=== PATIENT | female | born 1980 | race Caucasian/White ===

== ENCOUNTER 2017-07-04 18:08 | Emergency (ER) | payer OTHER ==
[~2017-07-04] VITALS: Ht 172.7 cm; Wt 65.8 kg
[~2017-07-04 18:08] MED LIST: AMOXICILLIN 50500 MG PO; LIDOCAINE VISC100 M1 MM; NORCO 5-325 TA1 EACH PO
[2017-07-04 18:21] VITALS: BP 121/80
[2017-07-04] MEDS ORDERED: LORATIDINE 10 M10 M1 PO (18:29)
[2017-07-04] MEDS ORDERED: PREDNISONE 5 MG5 MG PO (18:29)
[2017-07-04] MEDS ORDERED: AUGMENTIN 875-1 EACH PO (18:29)
[2017-07-04] MEDS ORDERED: AFRIN15 ML NS (18:29)
== END 2017-07-04 18:37 | disposition home or self-care (01) ==
LOC: M.ERS 18:08
DX: J32.9 Chronic sinusitis, unspecified (principal); F17.200 Nicotine dependence, unspecified, uncomplicated

== ENCOUNTER 2017-07-25 21:02 | Emergency (ER) | payer OTHER ==
[~2017-07-25] VITALS: Ht 170.2 cm; Wt 72.6 kg
[~2017-07-25 21:02] MED LIST changes: +AFRIN15 ML NS; +AUGMENTIN 875-1 EACH PO; +LORATIDINE 10 M10 M1 PO; +PREDNISONE 5 MG5 MG PO
[2017-07-25 22:09] LABS: HEMATOCRIT 35.7 % (37.0-47.0); HEMOGLOBIN 11.5 gm/dL (12.0-15.0); MCH 25.7 pg (26.0-34.0); MCHC 32.3 g/dL (28.0-37.0); MCV 79.7 fL (80.0-100.0); MPV 8.3 fl. (7.2-11.1); NUCLEATED RBCS 0 /100WBC; PLATELET COUNT* 268 thou/uL (150-400); RBC 4.48 mil/uL (4.20-5.00); RDW-CV 17.3 % (10.5-14.5); WBC 13.3 thou/uL (4.0-11.0)
[2017-07-25 22:16] LABS: CALCIUM 8.8 mg/dL (8.5-10.1); CREATININE 0.7 mg/dL (0.6-1.3); POTASSIUM 3.8 mmol/L (3.5-5.1)
[2017-07-25 22:20] LABS: ALBUMIN 3.8 g/dL (3.4-5.0); TOTAL BILIRUBIN 0.8 mg/dL (<0.1-1.0); TOTAL PROTEIN 7.5 g/dL (6.4-8.2)
[2017-07-25 23:46] LABS: URINE BILIRUBIN NEGATIVE (Negative); URINE BLOOD 3+ (Negative); URINE CLARITY CLEAR; URINE COLOR YELLOW; URINE GLUCOSE-RANDOM NEGATIVE (Negative); URINE LEUKOCYTES-REFLEX NEGATIVE (Negative); URINE NITRITE-REFLEX NEGATIVE (Negative); URINE PROTEIN TRACE (Negative); URINE SPECIFIC GRAVITY 1.025 (1.005-1.030); URINE UROBILINOGEN 0.2 E.U./dl (0.2-1.0)
[2017-07-25 23:47] LABS: ABSOLUTE LYMPHOCYTES 0.7 thou/uL (0.8-5.3); ABSOLUTE MONOCYTES 0.3 thou/uL (0.0-1.2); ABSOLUTE NEUTROPHILS 12.4 thou/uL (1.6-8.1); PLATELET ESTIMATE ADEQUATE
[2017-07-25 23:47] LABS: URINE KETONES 3+ (Negative)
[2017-07-26 00:01] LABS: CASTS None Seen /LPF (None Seen); MUCUS 0-3 Light strn/LPF (None Seen); SQUAMOUS 0-3 Few /LPF (0-3); URINE RBC 3-10 Few /HPF (0-2); URINE WBC-REFLEX None Seen /HPF (0-5)
[2017-07-26 00:02] LABS: AMORPHOUS URATES Many /LPF (None Seen)
[2017-07-26] MEDS ORDERED: BENTYL 20 MG TA20 M1 PO (00:50)
[2017-07-26] MEDS ORDERED: ZOFRAN4 MG PO (00:50)
[2017-07-26 00:57] VITALS: BP 147/91
== END 2017-07-26 00:58 | disposition home or self-care (01) ==
LOC: M.ERS 21:02
PROVIDERS: Nurse Practitioner Family
DX: K52.9 Noninfective gastroenteritis and colitis, unspecified (principal)

== ENCOUNTER 2017-10-21 22:36 | Emergency (ER) | payer OTHER ==
[~2017-10-21] VITALS: Ht 170.2 cm; Wt 72.6 kg
[~2017-10-21 22:36] MED LIST changes: +BENTYL 20 MG TA20 M1 PO; +ZOFRAN4 MG PO
[2017-10-21 23:04] LABS: ABSOLUTE MONOCYTES 0.4 thou/uL (0.0-1.2); ABSOLUTE NEUTROPHILS 5.6 thou/uL (1.6-8.1); BASOPHILS 0.3 %; EOSINOPHILS 0.1 %; HEMATOCRIT 42.9 % (37.0-47.0); HEMOGLOBIN 14.1 gm/dL (12.0-15.0); LYMPHOCYTES 14.8 %; MCH 26.4 pg (26.0-34.0); MCHC 32.8 g/dL (28.0-37.0); MCV 80.5 fL (80.0-100.0); MONOCYTES 5.5 %; MPV 8.3 fl. (7.2-11.1); NUCLEATED RBCS 0 /100WBC; PLATELET COUNT* 305 thou/uL (150-400); POLYS 79.3 %; RBC 5.32 mil/uL (4.20-5.00); RDW-CV 18.8 % (10.5-14.5)
[2017-10-21 23:09] LABS: URINE BILIRUBIN NEGATIVE (Negative); URINE BLOOD NEGATIVE (Negative); URINE CLARITY CLEAR; URINE COLOR YELLOW; URINE GLUCOSE-RANDOM NEGATIVE (Negative); URINE KETONES 3+ (Negative); URINE LEUKOCYTES-REFLEX 1+ (Negative); URINE NITRITE-REFLEX NEGATIVE (Negative); URINE PROTEIN 1+ (Negative); URINE UROBILINOGEN 0.2 E.U./dl (0.2-1.0)
[2017-10-21 23:18] LABS: BACTERIA-REFLEX >30 Many /HPF (None Seen); CASTS None Seen /LPF (None Seen); CRYSTALS None Seen /LPF (None Seen); MUCUS 4-6 Moderate strn/LPF (None Seen); SQUAMOUS 0-3 Few /LPF (0-3); TRANSITIONAL EPITHEL CELL 0-3 Few /LPF (None Seen); URINE RBC 3-10 Few /HPF (0-2); URINE WBC-REFLEX 6-15 Few /HPF (0-5)
[2017-10-21 23:18] LABS: CREATININE 0.8 mg/dL (0.6-1.3); POTASSIUM 3.7 mmol/L (3.5-5.1)
[2017-10-21 23:24] LABS: TOTAL BILIRUBIN 0.5 mg/dL (<0.1-1.0); TOTAL PROTEIN 8.5 g/dL (6.4-8.2)
[2017-10-21 23:33] LABS: AMP/METHAMP Negative (Negative); BARBITURATES Negative (Negative); BENZODIAZEPINES POSITIVE (Negative); COCAINE Negative (Negative); METHADONE Negative (Negative); OPIATES Negative (Negative); PCP Negative (Negative); THC POSITIVE (Negative)
[2017-10-21] MEDS ORDERED: NORCO 5-325 TA1 EACH PO (23:36)
[2017-10-21] MEDS ORDERED: PROMETHAZINE HC25 M1 PO (23:36)
[2017-10-21] MEDS ORDERED: PEPCID20 MG PO (23:37)
[2017-10-22 00:48] VITALS: BP 115/72
== END 2017-10-22 00:48 | disposition home or self-care (01) ==
LOC: M.ERS 22:36
PROVIDERS: Nurse Practitioner
DX: R11.2 Nausea with vomiting, unspecified (principal); R10.10 Upper abdominal pain, unspecified; F17.210 Nicotine dependence, cigarettes, uncomplicated; Z79.899 Other long term (current) drug therapy

== ENCOUNTER 2018-03-14 13:54 | Emergency (ER) | payer OTHER ==
[~2018-03-14] VITALS: Ht 170.2 cm; Wt 71.7 kg
[~2018-03-14 13:54] MED LIST changes: +PEPCID20 MG PO; +PROMETHAZINE HC25 M1 PO
[2018-03-14] MEDS ORDERED: NABUMETONE 750750 M1 PO (14:25)
[2018-03-14] MEDS ORDERED: MEDROLDOSEPACK PO (14:25)
[2018-03-14] MEDS ORDERED: ZANAFLEX4 MG PO (14:25)
[2018-03-14 15:03] VITALS: BP 127/83
== END 2018-03-14 15:04 | disposition home or self-care (01) ==
LOC: M.ERS 13:54
DX: M54.32 Sciatica, left side (principal)